=== PATIENT | female | born 1955 | race African-American/Black ===

== ENCOUNTER 2017-01-24 14:47 | Emergency (ER) | payer SELFPAY ==
[~2017-01-24] VITALS: Ht 167.6 cm; Wt 79.0 kg
[2017-01-24] MEDS ORDERED: ATOR20TA65 PO (15:49)
[2017-01-24] MEDS ORDERED: CIPR-264 PO (15:49)
[2017-01-24] MEDS ORDERED: ASPI-1159 PO (15:49)
[2017-01-24 16:37] LABS: CLARITY URINE CLEAR (CLEAR); COLOR URINE YELLOW (YELLOW); GLUCOSE URINE NEGATIVE (NEGATIVE); KETONES URINE NEGATIVE (NEGATIVE); LEUKOCYTE ESTERASE URINE NEGATIVE (NEGATIVE); NITRITE URINE NEGATIVE (NEGATIVE); OCCULT BLOOD URINE TRACE (NEGATIVE); PROTEIN URINE NEGATIVE (NEGATIVE); SPECIFIC GRAVITY URINE 1.017 (1.005-1.030); UROBILINOGEN URINE 0.2 E.U./dL (0.2-1.0)
[2017-01-24] MEDS ORDERED: KETOROLAC 60MG/2ML VIAL IM ONE (19:30)
[2017-01-24] MEDS ORDERED: HYDROCODONE/ACETAMINOPHEN 5/325MG TABLET PO ONE (19:30)
[2017-01-24 20:15] VITALS: BP 137/87
== END 2017-01-24 21:00 | disposition home or self-care (01) ==
LOC: ER 14:47
DX: M54.5 Low back pain (principal); R11.0 Nausea; Z79.82 Long term (current) use of aspirin; Z98.890 Other specified postprocedural states; Z90.710 Acquired absence of both cervix and uterus
CPT/HCPCS: 81001; 96372; 99283; J1885